=== PATIENT | female | born 2000 | race Two or more races ===

== ENCOUNTER 2023-05-21 15:19 | Emergency (ER) | payer SELFPAY ==
[2023-05-21] MEDS ORDERED: Polyethylene Glycol 3350 Powder 17 GM Packet PO ONE (15:35)
[2023-05-21] MEDS ORDERED: Magnesium Citrate Solution 296 ML Bottle PO ONE (15:36)
[2023-05-21] MEDS ORDERED: Magnesium Hydroxide 400 MG/5 ML Susp 30 ML Cup PO ONE (15:37)
[2023-05-21 15:56] LABS: BASOPHILS ABSOLUTE AUTO 0.06 K/uL (0.00-0.20); BASOPHILS PERCENT AUTO 0.6 % (0.0-1.0); EOSINOPHILS ABSOLUTE AUTO 0.44 K/uL (0.00-0.45); EOSINOPHILS PERCENT AUTO 4.1 % (0.0-6.0); HEMATOCRIT 35.5 % (37.0-47.0); HEMOGLOBIN 11.2 g/dL (12.0-16.0); IMMATURE GRAN ABSOLUTE AUTO 0.04 K/uL (0.00-0.05); IMMATURE GRAN PERCENT AUTO 0.4 % (0.0-0.4); LYMPHOCYTES ABSOLUTE AUTO 2.25 K/uL (1.00-4.80); LYMPHOCYTES PERCENT AUTO 20.9 % (24.0-44.0); MEAN CORPUSCULAR HEMOGLOBIN 25.2 pg (28.0-32.0); MEAN CORPUSCULAR HGB CONC 31.5 g/dL (32.0-36.0); MEAN CORPUSCULAR VOLUME 79.8 fL (83.0-99.0); MEAN PLATELET VOLUME 10.4 fL (9.4-12.3); MONOCYTES ABSOLUTE AUTO 0.81 K/uL (0.00-0.80); MONOCYTES PERCENT AUTO 7.5 % (0.0-8.0); NEUTROPHILS ABSOLUTE AUTO 7.16 K/uL (1.80-7.70); NEUTROPHILS PERCENT AUTO 66.5 % (41.0-71.0); PLATELET COUNT,PLT 278 K/uL (150-400); RED BLOOD CELL COUNT 4.45 M/uL (4.10-5.30); WHITE BLOOD CELL COUNT,WBC 10.76 K/uL (3.9-11.3)
[2023-05-21 16:17] LABS: A/G RATIO 0.9 (0.9-1.6); ALBUMIN 3.6 g/dL (3.4-5.0); BILIRUBIN TOTAL 0.3 mg/dL (0.2-1.0); CALCIUM 8.7 mg/dL (8.5-10.1); CARBON DIOXIDE,CO2 28.5 mmol/L (21.0-32.0); CREATININE 0.7 mg/dL (0.6-1.0); EST CRCL DRUG DOSING (CG) 103.4 mL/min; POTASSIUM,K 4.3 mmol/L (3.5-5.1); PROTEIN TOTAL,TP 7.7 g/dL (6.4-8.2)
== END 2023-05-21 17:05 | disposition home or self-care (01) ==
LOC: MW.ED 15:19
DX: K59.00 Constipation, unspecified (principal)
CPT/HCPCS: 36415; 74018; 80053; 85025; 99283; A9270; 99282